=== PATIENT | male | born 1950 | race Caucasian/White ===

== ENCOUNTER 2024-04-14 05:24 | Emergency (ER) | payer MEDICARE, MEDICAID ==
[~2024-04-14] VITALS: Ht 165.1 cm; Wt 71.0 kg
[~2024-04-14 05:24] MED LIST: AMLO2.5T45 PO; APIX2.5T PO; FURO-151 PO; LIP40 PO; SACU1TAB PO; SOTA80TA25 PO
[2024-04-14 05:38] VITALS: BP 137/78; PULSE 77; RESP 18; TEMP 97.7; O2SAT 99
== END 2024-04-14 05:49 | disposition left against medical advice (07) ==
LOC: ER 05:24
DX: I10 Essential (primary) hypertension (principal); Z53.21 Procedure and treatment not carried out due to patient leaving prior to being seen by health care provider
CPT/HCPCS: 93005